=== PATIENT | female | born 1990 | race Hispanic/Latino ===

== ENCOUNTER → 2018-10-31 | Day surgery (SDC) | payer OTHER ==
[~2018-10-31] MED LIST: BIRTH CONTROL PO; FENTANYL CITRATE/PF 100MCG/2 ML INJ ONE; LIDOCAINE HCL 2% LOCAL INJ 5 ML SDV VIAL INJ ONE; MIDAZOLAM HCL 2 MG/2 ML VIAL ONE; PROPOFOL IV EMULSION 10 MG/ML 50 ML VIAL ONE
--- OUTSIDE RECORDS SUMMARY | 2018-10-31 12:44 | XMS REPORT | Continuity of Care Document ---
Author Author [facility] Interface Address Unknown Phone Unavailable Problems Problem Status Onset Date Classification Date Reported Comments Source Viral disease 11/07/2017 Diagnosis 11/07/2017 [facility] Streptococcal sore throat 06/18/2017 Diagnosis 06/18/2017 [facility] Exudative pharyngitis 06/18/2017 Diagnosis 06/18/2017 [facility] Acute upper respiratory infection 06/17/2017 Diagnosis 06/18/2017 [facility] Aphthous ulcer of mouth 06/17/2017 Diagnosis 06/18/2017 [facility] Feeling feverish 06/17/2017 Diagnosis 06/18/2017 [facility] Pain in throat 06/17/2017 Diagnosis 06/18/2017 [facility] Medications Medication Details Route Status Patient Instructions Ordering Provider Order Date Source Lidocaine Hydrochloride 20 MG/ML Mucous Membrane Topical Solution Lidocaine Viscous 2 % mucosal solution Take 15 mL every 3 hours by oral route as needed. Active [facility] Ondansetron 8 MG Disintegrating Oral Tablet [Zofran] Zofran ODT [address] 1 tablet every 8 hours by translingual route as needed for 3 days. Active [facility] Amoxicillin 500 MG Oral Capsule amoxicillin 500 mg capsule Take 1 capsule twice a day by oral route as directed for 10 days. Active [facility] Allergies, Adverse Reactions, Alerts Substance Category Reaction Severity Reaction type Status Date Reported Comments Source Aspirin Hives Severe Allergy to substance 06/17/2017 [facility] Immunizations Immunization Date Given Site Status Last Updated Comments Source Results Order Name Results Value Reference Range Date Interpretation Comments Source RESULT negative 11/07/2017 [facility] SWAB LOCATION Left and Right tonsillar pillars 11/07/2017 [facility] Influenza A negative 11/07/2017 [facility] Influenza B negative 11/07/2017 [facility] RESULT negative 06/18/2017 [facility] RESULT positive 06/18/2017 [facility] SWAB LOCATION Left and Right tonsillar pillars 06/18/2017 [facility] RESULT negative 06/18/2017 [facility] SWAB LOCATION Right tonsillar pillars 06/18/2017 [facility] Influenza A negative 06/18/2017 [facility] Influenza B negative 06/18/2017 [facility] RESULT negative 06/17/2017 [facility] SWAB LOCATION Right tonsillar pillars 06/17/2017 [facility] Influenza A negative 06/17/2017 [facility] Influenza B negative 06/17/2017 [facility] Vital Signs Vital Sign Value Date Comments Source Diastolic (mm Hg) 72 11/07/2017 [facility] Height 65 11/07/2017 [facility] Systolic (mm Hg) 126 11/07/2017 [facility] Weight 183 11/07/2017 [facility] Diastolic (mm Hg) 70 06/18/2017 [facility] Height 65 06/18/2017 [facility] Systolic (mm Hg) 120 06/18/2017 [facility] Weight 171 06/18/2017 [facility] Diastolic (mm Hg) 74 06/17/2017 [facility] Height 65 06/17/2017 [facility] Systolic (mm Hg) 118 06/17/2017 [facility] Weight 171 06/17/2017 [facility] Encounters Location Location Details Encounter Type Encounter Number Reason For Visit Attending Provider ADM Date DC Date Status Source [place] - [facility] - [id number] Jayesh Anderson, MEDIEVAL ENGLISH LITERATURE PROFESSOR-C: [address] [place] [address], Ph. [phone] [id number] Jayesh Anderson 06/17/2017 [facility] [place] [facility] - [id number] Romero-C: [address] [place] [address], Ph. [id number] Jayesh Anderson 06/17/2017 [facility] [place] - [facility] - [id number] LyonP: [address] [place] [address], Ph. [id number] Vikram Wayne 06/18/2017 [facility] [place] [facility] - [id number] Meier, BASKETBALL COMMENTATOR, S: [address], [place] [address], Ph. [id number] Phyllis Meier 11/07/2017 [facility] Procedures Procedure Code Date Perfomer Comments Source [facility]
--- OUTSIDE RECORDS SUMMARY | 2018-10-31 12:44 | XMS REPORT ---
[facility] Address Unknown Phone Unavailable Care Team Providers Care Corporate General Manager Name Role Phone Unavailable Unavailable Payers Payer Name Policy Type Policy Number Effective Date Expiration Date Problems This patient has no known problems. Allergies, Adverse Reactions, Alerts Allergy Name Allergy Type Status Severity Reaction(s) Onset Date Inactive Date Treating Clinician Comments No Known Allergies DA Active U 2018-10-22 00:00:00 Medications This patient has no known medications. Results Test Description Test Time Test Comments Text Results Atomic Results Result Comments - CT ABD PELVIS W/O CONT 2018-10-22 23:11:00 Name: LEE FREY [facility] : 1990 Age/S: 28 / F [address] [facility] Unit #: [id number] Loc: [place] [address] Phys: Cindy Don MD Acct: [id number] Dis Date: Status: REG ER PHONE #: [phone] Exam Date: 10/22/2018 225 FAX #: [phone] Reason: left sided abd pain and flank pain EXAMS: CPT CODE: [id number] CT ABD PELVIS W/O CONT 45899 AFTER HOURS SERVICE ON: 10/22/2018 11:[address] Scan of the Abdomen and Pelvis Without Contrast Location Code M12 History: left sided abd pain and flank pain Technique: Axial and reconstructed coronal scans were performed on a helical scanner pre oral and IV contrast. Study is limited secondary to lack of oral and IV contrast. One or more of the following dose reduction techniques were used: Automated exposure control, adjustment of the mA and/or kV according to patient size, and/or utilization of iterative reconstruction technique. Findings: Liver: No significant findings. Gallbladder/Biliary: No significant findings. Pancreas: No significant findings. Spleen: No significant findings. Adrenals: No significant findings. Kidneys: No nephrolithiasis or hydronephrosis. Bladder: No significant findings. Bowel: No significant findings. The appendix is unremarkable. Other: Uterus and adnexa are within normal limits. Impression: No acute findings in the abdomen or pelvis. at 2311 Reported and signed by: Willy De La O M.D. CC: Cindy Don MD Technologist:PHILOMENA CROCKER(R),RDMS,CT CTDI: DLP: Trnscb Date/Time: 10/22/2018 (2310) [email or web address] Orig Print D/T: S: 10/22/2018 (2313) CTDI: DLP: PAGE 1 Signed Report COMPREHENSIVE METABOLIC PANEL 2018-10-22 23:05:00 SODIUM (test code=NA) 141 mmol/L 135-148 POTASSIUM (test code=K) 3.7 mmol/L 3.5-5.1 CHLORIDE (test code=CL) 104 mmol/L 101-109 CARBON DIOXIDE (test code=CO2) 26.4 mmol/L 21-32 ANION GAP (test code=GAP) 14 mmol/L 10-20 GLUCOSE (test code=GLU) 109 mg/dL 74-106 BLOOD UREA NITROGEN (test code=BUN) 10 mg/dL 3-21 CREATININE (test code=CREAT) 0.69 mg/dL 0.55-1.3 BUN/CREATININE RATIO (test code=BUN/CREA) 14.5 10-20 TOTAL PROTEIN (test code=PROT) 7.3 g/dL 6.5-8.4 ALBUMIN (test code=ALB) 3.7 g/dL 3.4-4.8 GLOBULIN (test code=GLOB) 3.6 G/DL 1-10 ALBUMIN/GLOBULIN RATIO (test code=A/G) 1.0 RATIO 0.75-1.50 CALCIUM (test code=CA) 9.0 mg/dL 8.4-10.2 BILIRUBIN TOTAL (test code=BILT) 0.30 mg/dL 0.0-1.0 SGOT/AST (test code=AST) 21 U/L 6-32 SGPT/ALT (test code=ALT) 53 U/L 12-78 Note: Change in REFERENCE RANGE due to new reagent method. ALKALINE PHOSPHATASE TOTAL (test code=ALKP) 80 U/L 38-126 [id number] 23:05:00* Test Item Value Reference Range Comments LIPASE (test code=LIP) 131 U/L 128-270 CBC W/AUTO [id number] 22:46:00* Test Item Value Reference Range Comments WHITE BLOOD CELL (test code=WBC) 8.6 K/mm3 4.5-12.5 RED BLOOD CELL (test code=RBC) 3.75 mill/mm3 3.7-5.2 HEMOGLOBIN (test code=HGB) 12.3 gram/dL 11.5-15.5 HEMATOCRIT (test code=HCT) 34.9 % 36.0-46.0 MEAN CELL VOLUME (test code=MCV) 93.1 fL 80-98 MEAN CELL HGB (test code=MCH) 32.8 picogram 27.0-33.0 MEAN CELL HGB CONCETRATION (test code=MCHC) 35.2 gram/dL 33.0-36.0 RED CELL DISTRIBUTION WIDTH (test code=RDW) 12.5 % 11.6-16.2 RED CELL DISTRIBUTION WIDTH SD (test code=RDW-SD) 40.8 fL 39.1-52.0 PLATELET COUNT (test code=PLT) 245 K/mm3 150-450 MEAN PLATELET VOLUME (test code=MPV) 10.5 fL 6.7-11.0 NEUTROPHIL % (test code=NT%) 56.3 % 39.0-69.0 LYMPHOCYTE % (test code=LY%) 35.3 % 25.0-55.0 MONOCYTE % (test code=MO%) 7.3 % 0.0-10.0 EOSINOPHIL % (test code=EO%) 0.9 % 0.0-5.0 BASOPHIL % (test code=BA%) 0.2 % 0.0-1.0 NEUTROPHIL # (test code=NT#) 4.86 K/mm3 1.8-7.7 LYMPHOCYTE # (test code=LY#) 3.05 K/mm3 1.0-5.0 MONOCYTE # (test code=MO#) 0.63 K/mm3 0-0.8 EOSINOPHIL # (test code=EO#) 0.08 K/mm3 0.0-0.5 BASOPHIL # (test code=BA#) 0.02 K/mm3 0.0-0.2 MANUAL DIFF REQUIRED (test code=MDIFF) NO URINALYSIS [id number] 22:01:00* Test Item Value Reference Range Comments UA COLOR (test code=COLU) STRAW YELLOW UA APPEARANCE (test code=APPU) HAZY CLEAR UA GLUCOSE DIPSTICK (test code=DGLUU) NORMAL mg/dL NEGATIVE UA BILIRUBIN DIPSTICK (test code=BILU) NEGATIVE mg/dL NEGATIVE UA KETONE DIPSTICK (test code=KETU) neg mg/dL NEGATIVE UA SPECIFIC GRAVITY (test code=SGU) 1.015 1.001-1.035 UA BLOOD DIPSTICK (test code=PRAVIN) 25 (1+) Tigre/uL NEGATIVE UA PH DIPSTICK (test code=JING) 6.5 5.0-8.0 UA PROTEIN DIPSTICK (test code=PROU) 15 (TRACE) mg/dL Neg-15 UA UROBILINIOGEN DIPSTICK (test code=URO) norm mg/dL 0.0-0.2 UA NITRITE DIPSTICK (test code=JONATAN) POSITIVE NEGATIVE UA LEUKOCYTE ESTERASE DIPSTICK (test code=LEUU) 25 (Trace) uL NEGATIVE UA WBC (test code=WBCU) 0-5 per HPF 0-5 IN SOME URINARY TRACT INFECTIONS THERE MAY NOT BE ENOUGHWBCs IN THE URINE TO TRIGGER AN AUTOMATIC (REFLEX) URINECULTURE. A SEPERATE ORDER FOR URINE CULTURE IS RECOMMENDEDIF THERE IS STRONG SUPPORT FOR A URINARY TRACT INFECTIONCLINICALLY. UA RBC (test code=RBCU) 0-2 per HPF 0-5 UA EPITHELIAL CELLS (test code=EPIU) Few (2-5/hpf) per HPF Few UA BACTERIA (test code=BACU) TRACE per HPF NONE UA AMORPHOUS SEDIMENT (test code=AMORU) MANY per LPF NONE Urine Source? Clean CatchUR HCG [id number] 22:01:00* Test Item Value Reference Range Comments UR HCG QUAL (test code=HCGQLU) NEGATIVE This HCGQL test is NOT applicable for MALE patients.Check with nurse about probable order error.If Tumor Marker Test needed, nurse should order test "HCGTU"(Test #550.29149) Urine Source? Clean CatchURINALYSIS [id number] 21:57:00* Test Item Value Reference Range Comments UA COLOR (test code=COLU) STRAW YELLOW UA APPEARANCE (test code=APPU) HAZY CLEAR UA GLUCOSE DIPSTICK (test code=DGLUU) NORMAL mg/dL NEGATIVE UA BILIRUBIN DIPSTICK (test code=BILU) NEGATIVE mg/dL NEGATIVE UA KETONE DIPSTICK (test code=KETU) neg mg/dL NEGATIVE UA SPECIFIC GRAVITY (test code=SGU) 1.015 1.001-1.035 UA BLOOD DIPSTICK (test code=PRAVIN) 25 (1+) Tigre/uL NEGATIVE UA PH DIPSTICK (test code=JING) 6.5 5.0-8.0 UA PROTEIN DIPSTICK (test code=PROU) 15 (TRACE) mg/dL Neg-15 UA UROBILINIOGEN DIPSTICK (test code=URO) norm mg/dL 0.0-0.2 UA NITRITE DIPSTICK (test code=JONATAN) POSITIVE NEGATIVE UA LEUKOCYTE ESTERASE DIPSTICK (test code=LEUU) 25 (Trace) uL NEGATIVE UA WBC (test code=WBCU) per HPF 0-5 Urine Source? Clean CatchUR HCG [id number] 21:57:00* Test Item Value Reference Range Comments UR HCG QUAL (test code=HCGQLU) NEGATIVE This HCGQL test is NOT applicable for MALE patients.Check with nurse about probable order error.If Tumor Marker Test needed, nurse should order test "HCGTU"(Test #550.18262) Urine Source? Clean CatchURINALYSIS [id number] 21:55:00* Test Item Value Reference Range Comments UA COLOR (test code=COLU) STRAW YELLOW UA APPEARANCE (test code=APPU) HAZY CLEAR UA GLUCOSE DIPSTICK (test code=DGLUU) NORMAL mg/dL NEGATIVE UA BILIRUBIN DIPSTICK (test code=BILU) NEGATIVE mg/dL NEGATIVE UA KETONE DIPSTICK (test code=KETU) neg mg/dL NEGATIVE UA SPECIFIC GRAVITY (test code=SGU) 1.015 1.001-1.035 UA BLOOD DIPSTICK (test code=PRAVIN) 25 (1+) Tigre/uL NEGATIVE UA PH DIPSTICK (test code=JING) 6.5 5.0-8.0 UA PROTEIN DIPSTICK (test code=PROU) 15 (TRACE) mg/dL Neg-15 UA UROBILINIOGEN DIPSTICK (test code=URO) norm mg/dL 0.0-0.2 UA NITRITE DIPSTICK (test code=JONATAN) POSITIVE NEGATIVE UA LEUKOCYTE ESTERASE DIPSTICK (test code=LEUU) 25 (Trace) uL NEGATIVE UA WBC (test code=WBCU) per HPF 0-5 Urine Source? Clean CatchUR HCG [id number] 21:55:00* Test Item Value Reference Range Comments UR HCG QUAL (test code=HCGQLU) Urine Source? Clean Catch
--- OUTSIDE RECORDS SUMMARY | 2018-10-31 12:44 | XMS REPORT | Encounter Summary ---
Author Organization Unknown Address [address] [place] [address] Phone [phone] Reason for Visit Medical Complaint Instructions 1. Viral disease rapid flu (A+B) rapid strep group A, throat Zofran ODT 8 mg disintegrating tablet Discussion Note sips of fluids throughout the day. include low sugar electrolyte drinks along w/water. clear liquids x 24 hours then advance diet as tolerated. probiotics over the counter as directed. if symptoms worsen or do not improve over the next 24-48 hours follow-up with PCP or go to ER. Patient educational handouts: No information available. Plan of Care Reminders Provider Appointments None recorded. Lab Rapid Flu (A+B) 11/07/2017 [facility] Rapid Strep Group a, Throat 11/07/2017 [facility] Referral None recorded. Procedures None recorded. Surgeries None recorded. Imaging None recorded. Medications Name Start Date Zofran ODT [address] 1 tablet every 8 hours by translingual route as needed for 3 days. Medications Administered None recorded. Vitals Height Weight BMI Blood Pressure 5 ft 5 in 183 lbs 30.5 kg/m2 126/72 mm[Hg] Lab Results Date Name Specimen Result Interpretation Description Value Range Status Address Rapid Strep Group a, Throat Result negative [facility]: [address] [place] [address] Swab Location Left and Right tonsillar pillars [facility]: [address] [place] [address] Rapid Flu (A+B) Influenza a negative [facility]: [address] [place] [address] Influenza B negative [facility]: [address] [place] [address] Allergies Code Code System Name Reaction Severity Status Onset 1191 RxNorm Aspirin Hives Severe Active Problems No Known Problems Procedures Date Name Performed by Information not available Vaccine List None recorded. Social History Smoking Status Never Smoker Past Encounters 11/07/2017 Viral Disease Phyllis Meier, INSTRUCTOR ADJUNCT SURGICAL TECHNICIAN, S: [address] [place] [address], Ph. History of Present Illness Tsuzzhf-Rhvlg-Ukj Reported By: Patient HPI: Quality: ; body aches. Duration: 2 days. Severity: highest temperature 100.9. Onset/Timing: first recorded today. Context: ill contacts. Associated Symptoms: fever/chills, muscle aches; nausea. Modifying Factors OTC medication Review of Systems Basic Reported By: Patient Constitutional: Constitutional: fever Vymn-Kqxy-Sbglw-Throat: Nose: nose/sinus problems. Mouth/Throat: sore throat Cardiovascular: Cardiovascular: no chest pain, no shortness of breath, no known heart murmur Respiratory: Respiratory: no wheezing, no shortness of breath, cough Gastrointestinal: Gastrointestinal: ; nausea Physical Exam Adult Basic, Adult Female Complete Reported By: Patient Constitutional: General Appearance: healthy-appearing, well-nourished, well-developed. Level of Distress: NAD. Ambulation: ambulating normally Psychiatric: Mental Status: active and alert Psi-Volz-Benmg-Throat: Ears: no lesions on external ear, no outer ear tenderness, EACs clear, TMs clear. Nose: no lesions on external nose, nares patent, no septal deviation, nasal passages clear, no sinus tenderness, no nasal discharge. Lips, Teeth, and Gums: no mouth or lip ulcers, no bleeding gums, normal dentition. Oropharynx: moist mucous membranes, no exudates, tonsils not enlarged, erythema Neck: Neck: supple, trachea midline, no masses, FROM. Lymph Nodes: no cervical LAD Lungs: Respiratory effort: no dyspnea, no tachypnea, no use of accessory muscles. Auscultation: breath sounds normal Cardiovascular: Heart Auscultation: RRR, no murmurs Abdomen: Bowel Sounds: normal. Inspection and Palpation: soft, non-distended, no tenderness, no guarding, no rebound tenderness, no masses, no CVA tenderness. Liver: non-tender, no hepatomegaly. Spleen: non-tender, no splenomegaly
--- OUTSIDE RECORDS SUMMARY | 2018-10-31 12:44 | XMS REPORT | Encounter Summary ---
Author Organization Unknown Address [address] [place] [address] Phone [phone] Reason for Visit Medical Complaint Instructions 1. Streptococcal sore throat strep throat: care instructions amoxicillin 500 mg capsule rapid strep group A, throat 2. Exudative pharyngitis mononucleosis, heterophile Ab, blood Discussion Note Pt is aaox3 and in NAD; verbalizes understanding of all instructions and has no further questions at this time Plan of Care Patient Instructions Take medications as prescribed and discussed; follow up with your PCP within 2- 3 days or sooner should symptoms worsen. Reminders Provider Appointments None recorded. Lab Rapid Strep Group a, Throat 06/18/2017 [facility] Mononucleosis, Heterophile Ab, Blood 06/18/2017 [facility] Referral None recorded. Procedures None recorded. Surgeries None recorded. Imaging None recorded. Medications Name Start Date amoxicillin 500 mg capsule Take 1 capsule twice a day by oral route as directed for 10 days. Medications Administered None recorded. Vitals Height Weight BMI Blood Pressure 5 ft 5 in 171 lbs 28.5 kg/m2 120/70 mm[Hg] Lab Results Date Name Specimen Result Interpretation Description Value Range Status Address Mononucleosis, Heterophile Ab, Blood Result negative [facility]: [address] [place] [address] Rapid Strep Group a, Throat Result positive [facility]: [address] [place] [address] Swab Location Left and Right tonsillar pillars [facility]: [address] [place] [address] Rapid Strep Group a, Throat Result negative [facility]: [address] [place] [address] Swab Location Right tonsillar pillars [facility]: [address] [place] [address] Rapid Flu (A+B) Influenza a negative [facility]: [address] [place] [address] Influenza B negative [facility]: [address] [place] [address] Allergies Code Code System Name Reaction Severity Status Onset 1191 RxNorm Aspirin Hives Severe Active Problems No Known Problems Procedures Date Name Performed by Information not available Vaccine List None recorded. Social History Smoking Status Never Smoker Past Encounters 06/18/2017 Streptococcal Sore Throat; Exudative Pharyngitis Vikram Wayne, TEST DEPARTMENT HELPER: [address] [place] [address], Ph. 06/17/2017 Acute Upper Respiratory Infection; Aphthous Ulcer of Mouth; Feeling Feverish; Pain in Throat Jayesh MAGDI AndersonP-C: [address] [place] [address], Ph. History of Present Illness Throat-Oral Complaint Reported By: Patient HPI: Location: throat. Quality: sore throat. Severity: mild. Duration: 3 days. Onset/Timing: sudden. Context: no sick contacts, no foreign travel, non-smoker, allergies. Modifying factors: ; SEE PREVIOUS CHART--[facility]AS SEEN AT [facility]. Associated Symptoms: no fever, no headache, no body aches, no sputum production, no shortness of breath, no wheezing, no change in number of pillows needed to sleep at night, no sweats, no significant weight gain, no significant weight loss, no morning cough, no vomiting, no diarrhea, no rash, no nausea, sore throat Review of Systems:ROS as noted in the HPI Review of Systems Basic Reported By: Patient Physical Exam Adult Basic, Adult Female Complete Reported By: Patient Constitutional: General Appearance: healthy-appearing, well-nourished, well-developed. Level of Distress: NAD. Ambulation: ambulating normally Psychiatric: Mental Status: active and alert. Orientation: to time, to place, to person Ric-Llid-Bccon-Throat: Ears: no lesions on external ear, no outer ear tenderness, EACs clear, TMs clear. Hearing: no hearing loss. Nose: no lesions on external nose, nares patent, no septal deviation, nasal passages clear, no sinus tenderness, no nasal discharge. Lips, Teeth, and Gums: no mouth or lip ulcers, no bleeding gums, normal dentition. Oropharynx: moist mucous membranes, erythema, exudates, tonsils enlarged 2+ Neck: Neck: FROM. Lymph Nodes: no supraclavicular LAD, anterior cervical LAD Lungs: Respiratory effort: no dyspnea, no tachypnea, no use of accessory muscles, no intercostal retractions. Auscultation: breath sounds normal Cardiovascular: Heart Auscultation: RRR, no murmurs Neurologic: Gait and Station: normal gait, normal station
--- OUTSIDE RECORDS SUMMARY | 2018-10-31 12:44 | XMS REPORT | Encounter Summary ---
Author Organization Unknown Address [address] [place] [address] Phone [phone] Reason for Visit Medical Complaint Instructions 1. Acute upper respiratory infection upper respiratory infection (cold): care instructions 2. Aphthous ulcer of mouth canker sore: care instructions Lidocaine Viscous 2 % mucosal solution 3. Feeling feverish rapid flu (A+B) 4. Pain in throat sore throat: care instructions rapid strep group A, throat Discussion Note: None recorded. Plan of Care Patient Instructions take medication as directed. follow up pcp. Reminders Provider Appointments None recorded. Lab Rapid Flu (A+B) 06/17/2017 [facility] Rapid Strep Group a, Throat 06/17/2017 [facility] Referral None recorded. Procedures None recorded. Surgeries None recorded. Imaging None recorded. Medications Name Start Date Lidocaine Viscous 2 % mucosal solution Take 15 mL every 3 hours by oral route as needed. Medications Administered None recorded. Vitals Height Weight BMI Blood Pressure 5 ft 5 in 171 lbs 28.5 kg/m2 118/74 mm[Hg] Lab Results Date Name Specimen Result Interpretation Description Value Range Status Address Rapid Strep Group a, Throat Result negative [facility]: [address] [place] [address] Swab Location Right tonsillar pillars [facility]: [address] [place] [address] Rapid Flu (A+B) Influenza a negative [facility]: [address] [place] [address] Influenza B negative [facility]: [address] [place] [address] Allergies Code Code System Name Reaction Severity Status Onset 1191 RxNorm Aspirin Hives Severe Active Problems None recorded. Procedures Date Name Performed by Information not available Vaccine List None recorded. Social History Smoking Status Never Smoker Past Encounters 06/17/2017 Acute Upper Respiratory Infection; Aphthous Ulcer of Mouth; Feeling Feverish; Pain in Throat MERON Bland-C: [address] [place] [address], Ph. History of Present Illness Hljap-Objwozslwg-Dhvjtrs Reported By: Patient HPI: Location: head/sinuses, throat. Quality: sore throat, nasal/sinus congestion. Duration: 2days. Severity: mild, moderate. Onset/Timing: gradual. Context: no sick contacts, no foreign travel, non-smoker. Modifying factors: OTC medication. Associated Symptoms: no sputum production, no shortness of breath, no wheezing, no change in number of pillows needed to sleep at night, no sweats, no significant weight gain, no significant weight loss, no morning cough, no vomiting, no diarrhea, no rash, no nausea, no fever, no muscle aches, no headache, sore throat Review of Systems:ROS as noted in the HPI Review of Systems Basic Reported By: Patient Physical Exam Adult Basic, Adult Female Complete Reported By: Patient Constitutional: General Appearance: healthy-appearing, well-nourished, well-developed. Level of Distress: NAD. Ambulation: ambulating normally Eyes: Lids and Conjunctivae: non-injected, no discharge Pwq-Dyll-Rgzyd-Throat: Ears: no lesions on external ear, no outer ear tenderness, EACs clear, TMs clear. Hearing: no hearing loss. Nose: no lesions on external nose, nares patent, no septal deviation, nasal passages clear, no sinus tenderness, no nasal discharge. Lips, Teeth, and Gums: mouth ulcers. Oropharynx: moist mucous membranes, no erythema, no exudates, tonsils not enlarged Neck: Neck: trachea midline. Lymph Nodes: no cervical LAD Lungs: Respiratory effort: no dyspnea, no tachypnea, no use of accessory muscles, no intercostal retractions. Auscultation: breath sounds normal Cardiovascular: Heart Auscultation: RRR, no murmurs
[2018-10-31 17:33] LABS: BILIRUBIN,URINE NEGATIVE (NEGATIVE); CLARITY,URINE CLOUDY (CLEAR); COLOR,URINE STRAW (YELLOW); KETONES,URINE NEGATIVE (NEGATIVE); LEUKOCYTE ESTERASE ,URINE NEGATIVE (NEGATIVE); NITRITE,URINE POSITIVE (NEGATIVE); PROTEIN,URINE DIPSTICK TRACE (NEGATIVE); URINE UROBILINOGEN 0.2 mg/dL (0.2 - 1)
[2018-10-31 17:34] LABS: AMORPHOUS SEDIMENT,URINE MANY (FEW); BACTERIA,URINE MODERATE /HPF; EPITHELIAL CELLS,URINE MODERATE /LPF; RBC,URINE 0-5 /HPF (0-5)
[2018-10-31 17:45] VITALS: BP 111/76
[2018-10-31 17:53] LABS: ANION GAP 13.4 mmol/L (8-16); BLOOD UREA NITROGEN 10 mg/dL (7-26); BUN/CREATININE RATIO 13 (6-25); CALCIUM 9.5 mg/dL (8.4-10.2); CARBON DIOXIDE 22 mmol/L (22-29); CHLORIDE 104 mmol/L (98-107); CREATININE, SERUM 0.79 mg/dL (0.57-1.11); EST GLOMERULAR FILTRATION RATE > 60 ML/MIN (60-); GLUCOSE 102 mg/dL (74-118); POTASSIUM 3.4 mmol/L (3.5-5.1); SODIUM 136 mmol/L (136-145)
--- NOTE | 2018-10-31 18:29 | Operative Report ---
DATE OF PROCEDURE: 10/31/2018 SURGEON: Tomer Nunn MD PROCEDURE: Esophagogastroduodenoscopy with biopsies. INDICATIONS FOR EGD: Acid reflux, heartburn, and bloating. MEDICATIONS: The patient was done under MAC, please see anesthesiologist's note. PROCEDURE IN DETAIL: With the patient in left lateral decubitus position, the flexible fiberoptic Olympus gastroscope was introduced into the esophagus under direct visualization without any difficulty. There was some patchy intense erythema noted in the distal esophagus. The scope was then advanced with ease into the stomach and mucosa overlying the antrum and the body revealed some patchy erythema and low-grade edema and biopsies were obtained and sent to stain for H pylori. Pylorus was of normal contour and shape, was intubated with ease and the scope was advanced all the way to the second portion of the duodenum. Biopsies were obtained from the proximal second portion to rule out sprue as well as the duodenal bulb. The scope was then withdrawn back into the stomach and retroflexed and mucosa overlying the fundus and the cardia appeared to be within normal limits. The scope was then straightened out, it was subsequently withdrawn. The patient tolerated the procedure well. IMPRESSION: 1. Distal esophagitis. 2. Gastritis, biopsied. Biopsies sent to stain for Helicobacter pylori. 3. Rule out sprue. PLAN: Follow up histology. Initiate Protonix 40 mg one p.o. q.a.m. a.c. If the patient symptoms persists, we will proceed with gallbladder evaluation. Tomer Nunn MD [facility] – [place] /[id number]
== END | disposition home or self-care (01) ==
LOC: OR 12:40
PROVIDERS: ATTEND Internal Medicine Gastroenterology
DX: K29.70 Gastritis, unspecified, without bleeding (principal); K20.9 Esophagitis, unspecified; Z88.6 Allergy status to analgesic agent; Z68.35 Body mass index [BMI] 35.0-35.9, adult
CPT/HCPCS: 36415; 43239; 80048; 81001; 81025; J2001; J2250; J2704

== ENCOUNTER → 2025-02-11 | Outpatient (REF) | payer OTHER ==
[~2025-02-11] MED LIST changes: +ALBUTEROL SULF 0.083% NEB SOLN 3 ML NEB ONE; -FENTANYL CITRATE/PF 100MCG/2 ML INJ ONE; -LIDOCAINE HCL 2% LOCAL INJ 5 ML SDV VIAL INJ ONE; -MIDAZOLAM HCL 2 MG/2 ML VIAL ONE; -PROPOFOL IV EMULSION 10 MG/ML 50 ML VIAL ONE
== END ==
LOC: RESP 14:55 → EDSTATUS 15:00
PROVIDERS: ATTEND Family Medicine
DX: R06.1 Stridor (principal); R06.02 Shortness of breath; R00.2 Palpitations; R91.8 Other nonspecific abnormal finding of lung field; K21.9 Gastro-esophageal reflux disease without esophagitis; F41.9 Anxiety disorder, unspecified
CPT/HCPCS: 94060; 94727; 94729